=== PATIENT | female | born 1950 | race Caucasian/White ===

== ENCOUNTER 2018-07-25 15:55 | Inpatient (IN) | payer MEDICARE, MEDICAID ==
[~2018-07-25] VITALS: Ht 165.1 cm; Wt 62.7 kg
--- NOTE | ~2018-07-25 | PN ---
PATIENT:DEREK MALDONADO MEDICAL RECORD: [id number] LOCATION:S[facility] LopezJimmy112 ADMISSION DATE: 07/25/18 PROGRESS NOTE DATE OF SERVICE: 08/01/2018 SUBJECTIVE: The patient's case was discussed with staff. She has no new complaint. OBJECTIVE: The patient denies intent to harm herself or others. She generally tolerates her medicines well. Eye contact is good. ASSESSMENT: No change in diagnoses. PLAN: The patient will be transitioned out of the hospital today. She is tolerating her medications well and has a therapeutic Depakote level. She should have another Depakote level done in 2 weeks and followup is going to be with her primary care physician and the psychiatrist at the [facility]. TRANSINT:[id number] Voice Confirmation ID: [id number] DOCUMENT ID: [id number] MARK ANDRADE MD at 1440 CC: [id number] DICTATION DATE: 08/01/18 1331 CHOCOLATE FINISHER OPERATOR: 08/01/18 1338 DIS IN 08/01/18 [place] [id number] [place] [address]
--- NOTE | ~2018-07-25 | PN ---
PATIENT:DEREK MALDONADO MEDICAL RECORD: [id number] LOCATION:[facility] ADMISSION DATE: 07/25/18 PROGRESS NOTE DATE OF SERVICE: 07/29/2018 SUBJECTIVE: The patient's case was discussed with staff. She has no new complaint. OBJECTIVE: The patient is in good behavioral control. She is much more cooperative and her mood lability has dramatically improved since she was started on Depakote. She insists she is not bipolar, but states that she will take the medications because she thinks correctly that it will help her make better decisions and be less impulsive. ASSESSMENT: No change in diagnoses. PLAN: Current medicines and therapies have been reviewed and will be maintained. Long-term prognosis is guarded. TRANSINT:[id number] Voice Confirmation ID: [id number] DOCUMENT ID: [id number] MARK ANDRADE MD at 1053 CC: [id number] DICTATION DATE: 07/29/18 1334 DEVELOPMENT ANALYST: 07/29/18 1340 ADM IN [place] [id number] [place] [id number]
--- NOTE | ~2018-07-25 | PN ---
PATIENT:DEREK MALDONADO MEDICAL RECORD: [id number] LOCATION:S[facility] BeebeJennifer ADMISSION DATE: 07/25/18 PROGRESS NOTE DATE OF SERVICE: 07/28/2018 SUBJECTIVE: The patient's case was discussed with staff. She has no new complaint. OBJECTIVE: The patient is in good behavioral control with limited insight about her condition. She tolerates her medicines well. Eye contact is poor. ASSESSMENT: No change in diagnoses. PLAN: Current medicines and therapies have been reviewed, both will be maintained. She is showing significant improvement. TRANSINT:[id number] Voice Confirmation ID: [id number] DOCUMENT ID: [id number] MARK ANDRADE MD at 1324 CC: [id number] DICTATION DATE: 07/28/18 140 INNER TUBE INSERTER: 07/28/18 1407 ADM IN [address] [address]
--- NOTE | ~2018-07-25 | PSY ---
PATIENT NAME:DEREK MALDONADO MEDICAL RECORD: [id number] : 52 LOCATION:[facility]ica[facility] ADMISSION DATE: 07/25/18 ACCOUNT: [id number] PSYCHIATRIC EVALUATION DATE OF EVALUATION: 07/26/18 PSYCHIATRIC EVALUATION IDENTIFYING DATA: The patient is 68 years old and she was admitted to the hospital on a voluntary basis. CHIEF COMPLAINT: Confusion. HISTORY OF PRESENT ILLNESS: The patient was taken to the [facility] by ambulance after the [place] called them. Apparently, the patient had been driving around [facility] for hours and was lost. She was quite confused. She apparently had driven to [place] and then back to [place] and was exhibiting a high degree of agitation and distress with a low degree of specificity about what was bothering her. She is making a number of very bizarre and delusional statements such as telling myself and the nurse that she is psychic and that she knows what we are thinking. She is hearing and responding to a voice that is outside of the window and it is saying to her that he is going to shoot her in the head. Another voice is telling her that he is going to cut her head off and cut her into little pieces. She says very grandiose and bizarre things about her abilities and intelligence, and is clearly displaying manic behavior. She did have medical and neurologic evaluation in the [facility] with no acute findings. PAST MEDICAL HISTORY: Negative for any significant or chronic medical problems. PAST PSYCHIATRIC HISTORY: Significant for previous inpatient and outpatient treatment, but the patient is unable to give me details about this without rambling and becoming grossly disorganized and loose in her associations. FAMILY HISTORY: Unknown. ALLERGIES: TYLENOL. CURRENT MEDICATIONS: Include Bentyl, Fosamax, Wellbutrin, and Ambien. SOCIAL HISTORY: The patient is . 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 She denies a history of drug or alcohol abuse as well as legal entanglements. MENTAL STATUS EXAMINATION: The patient is awake, alert, and oriented to person only. She is rambling and incoherent about the place, time, and situation. Her mood is flat. Her affect is constricted. Thought processes are disorganized. Memory, concentration, and abstraction abilities are moderately impaired. She denies any active intent to harm herself or others as well as overt psychotic symptoms. ASSETS: Supportive family members. LIABILITIES: Limited insight. DIAGNOSTIC IMPRESSION: AXIS I: Bipolar disorder, manic. AXIS II: Deferred. AXIS III: None. AXIS IV: Moderate. AXIS V: Global assessment of functioning 40. PLAN: At this time, the patient is admitted to the hospital for a comprehensive medical, psychological, and social evaluation. I am going to start her on an antipsychotic and mood stabilizer. I am going to discontinue her Wellbutrin and Ambien. TRANSINT:[id number] Voice Confirmation ID: [id number] DOCUMENT ID: [id number] MARK ANDRADE MD at 1628 CC: [id number] DICTATION DATE: 07/26/18 1518 ALUMINUM SHEET CUTTER: 07/26/18 1530 ADM IN [place] [address] [place] [address]
--- NOTE | ~2018-07-25 | PN ---
PATIENT:DEREK MALDONADO MEDICAL RECORD: [id number] LOCATION:SIN[facility] Beebe112 ADMISSION DATE: 07/25/18 PROGRESS NOTE DATE OF SERVICE: 07/27/2018 SUBJECTIVE: The patient's case was discussed with staff. She has no new complaint. OBJECTIVE: The patient is very irritable. When asked even very simple and nonthreatening questions, she becomes angry. She is giving me a little bit more history, but is not very helpful. She tells me that she is followed by the [facility] in [place]. She does not know the name of her doctor and she does not know why she goes there. She says they have given her some BuSpar, but it really does not help. She says no one has ever talked to her about the diagnosis of bipolar disorder and she does not think she has the condition. She goes on to describe what sounds like hypomanic symptoms that she primarily is calling insomnia and complaining about insomnia, but along with the insomnia, the impulsivity, the mood lability, the poor judgment and even some of the delusional symptoms that have been reported, is my opinion that diagnosed or not she has a longstanding problem with manic depression or bipolar disorder. ASSESSMENT: No change in diagnoses. PLAN: The patient is going to be prescribed Depakote for mood stabilizing purposes. I am not sure if she is going to take it, but I think it is in her best interest and have discussed it with her. I am not sure if she agreed since she got up and seemed to be agreeing, but then she was mumbling something angrily as she walked away. TRANSINT:[id number] Voice Confirmation ID: [id number] DOCUMENT ID: [id number] MARK ANDRADE MD at 1305 CC: [id number] DICTATION DATE: 07/27/18 172 WINDSHIELD TECHNICIAN: 07/27/18 1739 ADM IN [place] [address] [place] [address]
--- NOTE | ~2018-07-25 | DS ---
PATIENT:DEREK MALDONADO :52 MEDICAL RECORD: [id number] DISCHARGE SUMMARY ADMISSION DATE: 07/25/18 DISCHARGE DATE: 08/01/18 PSYCHIATRIC DISCHARGE SUMMARY IDENTIFYING DATA: The patient is 68 years old and she was admitted to the hospital on a voluntary basis because of confusion. The patient was recently taken to the [facility] by ambulance. The [place] [employer] had been called because she was driving around town confused and lost. She had apparently just returned from [place] and had been exhibiting a high degree of agitation and distress with a low degree of specificity about what was distressing her. She was making a number of very bizarre delusional statements such as telling the nurse and others that she was psychic and that she knew what we were thinking. She was clearly hearing and responding to external stimuli and was talking to someone outside the window. She was hearing a voice telling her that she was going to have her head cut off and that she was going to be cut up into little pieces and she was obviously very distressed about this. She was exhibiting grandiose bizarre behaviors and was clearly manic in a classical sense. HOSPITAL COURSE: The patient was admitted to the hospital and evaluated from both medical, psychological, and social standpoint. She was treated with both mood stabilizing and antipsychotic medications and showed a dramatic improvement. She organized, was not psychotic, actually had a euthymic mood, and was able to track and focus her attention. She stated that she felt better than she had ever felt and felt that, for the first time, her psychiatric symptoms were under control. It is unclear to me why she had never been placed on Depakote or lithium, but this is the history that she presented. DISCHARGE DIAGNOSES: AXIS I: Bipolar disorder, manic. AXIS II: Deferred. AXIS III: None. AXIS IV: Moderate. AXIS V: Global assessment of functioning 60. PLAN: At the time of discharge, the patient had dramatically improved and was not showing any evidence of kelly or psychiatric disease. She was tolerating her medications well. Her long-term prognosis is guarded. Brief supportive and educational interventions were made and followup was arranged with local mental health center. Assuming she follows up with these appointments and takes her medicines as prescribed, I think she has a good prognosis. TRANSINT:[id number] Voice Confirmation ID: [id number] DOCUMENT ID: [id number] MARK ANDRADE MD at 1407 CC: [id number] DICTATION DATE: 08/03/18 1454 CANDY MAKER HELPER: 08/03/18 1517 DIS IN 08/01/18 [place] [id number] [place] [id number]
--- NOTE | ~2018-07-25 | PN ---
PATIENT:DEREK MALDONADO MEDICAL RECORD: [id number] LOCATION:S[facility] Howard ADMISSION DATE: 07/25/18 PROGRESS NOTE DATE OF SERVICE: 07/31/2018 SUBJECTIVE: The patient's case was discussed with staff. She has no new complaint. OBJECTIVE: The patient has dramatically improved with her thought processes no longer being disorganized and no psychotic symptoms are present. Her mood lability is also dramatically improved. ASSESSMENT: No change in diagnoses. PLAN: The patient has a therapeutic Depakote level of 92. I plan on her being discharged tomorrow if this level of improvement is maintained. TRANSINT:[id number] Voice Confirmation ID: [id number] DOCUMENT ID: [id number] MARK ANDRADE MD at 1319 CC: [id number] DICTATION DATE: 07/31/18 1015 TABLE GAMES SUPERVISOR: 07/31/18 1144 ADM IN [place] [id number] [place] [address]
--- NOTE | ~2018-07-25 | PN ---
PATIENT:DEREK MALDONADO MEDICAL RECORD: [id number] LOCATION:SINAN Bebee112 ADMISSION DATE: 07/25/18 PROGRESS NOTE DATE OF SERVICE: 07/30/2018 SUBJECTIVE: The patient's case was discussed with staff. She has no new complaint. OBJECTIVE: The patient denies intent to harm herself or others. She does tolerate her medicines well. ASSESSMENT: No change in diagnoses. PLAN: The patient has shown dramatic improvement in her thought processes and mood lability. I am going to check a Depakote level tomorrow and will transition her out of the hospital Wednesday if this level of improvement continues. TRANSINT:[id number] Voice Confirmation ID: [id number] DOCUMENT ID: [id number] MARK ANDRADE MD at 1002 CC: [id number] DICTATION DATE: 07/30/18 1115 GRAIN ELEVATOR MAN: 07/30/18 1352 ADM IN [facility] [address] [place] [address]
[2018-07-25] MEDS ORDERED: BENTYL10 MG PO (16:17)
[2018-07-25] MEDS ORDERED: ALENDRONATE SOD70 MG PO (16:18)
[2018-07-25] MEDS ORDERED: BUPROPION HCL100 MG (16:19)
[2018-07-25] MEDS ORDERED: AMBIEN10 MG PO (16:21)
[2018-07-25 16:27] VITALS: BP 150/85; BMI 23.0
[2018-07-25 19:47] VITALS: BP 150/85
[2018-07-25 20:29] LABS: APPEARANCE CLEAR (CLEAR); BILIRUBIN NEGATIVE (NEGATIVE); COLOR YELLOW (YELLOW); GLUCOSE NEGATIVE (NEGATIVE); KETONE NEGATIVE (NEGATIVE); NITRITE NEGATIVE (NEGATIVE); PROTEIN NEGATIVE (NEGATIVE); UROBILINOGEN NORMAL (NORMAL)
[2018-07-25 20:30] LABS: RED CELLS - URINE OCC /hpf (0-5); WHITE CELLS - URINE 0-5 /hpf (0-5)
[2018-07-25 20:31] LABS: BACTERIA FEW /hpf (NONE SEEN)
[2018-07-26 08:00] VITALS: BP 136/70
[2018-07-26 10:23] VITALS: BMI 22.9
[2018-07-26 10:47] VITALS: Ht 165.1 cm; Wt 62.7 kg
[2018-07-26 10:54] LABS: BASOPHILS 0.3 % (0-2); EOSINOPHILS 1.3 % (0-7); HEMATOCRIT 41.6 % (36.0-48.0); IMMATURE GRANULOCYTES 0.2 % (0-5); LYMPHOCYTES 18.1 % (15-50); MCHC 33.7 g/dL (31.0-37.0); MEAN PLATELET VOLUME 9.7 fL (7.4-10.4); MONOCYTES 6.1 % (2-11); PLATELET COUNT 201 10x3/uL (130-400); RBC 4.52 10x6/uL (4.00-5.40); WBC 6.2 10x3/uL (4.8-10.8)
[2018-07-26 11:25] LABS: ALBUMIN 3.4 g/dL (3.4-5.0); ANION GAP 11.1 mmol/L (8-16); BILIRUBIN - TOTAL 0.77 mg/dL (0.2-1.3); CALCIUM 8.9 mg/dL (8.5-10.1); CARBON DIOXIDE 31.5 mmol/L (21.0-32.0); CHOL - HDL RATIO 2.9 ratio (2.3-4.1); CREATININE - SERUM 1.1 mg/dL (0.6-1.3); LDL-HDL RATIO 1.5 ratio (1.5-3.5); POTASSIUM - SERUM 3.6 mmol/L (3.5-5.1); PROTEIN - SERUM 6.5 g/dL (6.4-8.2); THYROID STIMULATING HORMONE 0.61 uIU/mL (0.36-3.74)
[2018-07-26 19:37] VITALS: BP 109/62
[2018-07-27 06:15] LABS: VITAMIN D 25 HYDROXY 26.5 ng/mL (30.0-100.0)
[2018-07-27 07:37] VITALS: BP 114/60
[2018-07-27 08:23] LABS: RAPID PLASMA REAGIN Non Reactive (Non Reactive)
[2018-07-27 09:19] LABS: FOLATE (FOLIC ACID) - SERUM 13.4 ng/mL (>3.0)
[2018-07-27 20:25] VITALS: BP 108/62
[2018-07-28 09:14] VITALS: BP 120/67
[2018-07-28 19:41] VITALS: BP 96/45
[2018-07-29 08:58] VITALS: BP 111/66
[2018-07-29 20:00] VITALS: BP 100/56
[2018-07-30 08:00] VITALS: BP 109/76
[2018-07-30 19:22] VITALS: BP 100/50
[2018-07-31 08:00] VITALS: BP 118/50
[2018-07-31] MEDS ORDERED: VITAMIN D5000 UNIT PO (10:16)
[2018-07-31] MEDS ORDERED: DEPAKOTE500 MG PO (10:16)
[2018-07-31] MEDS ORDERED: ZYPREXA2.5 MG PO (10:16)
[2018-07-31 19:25] VITALS: BP 112/54
[2018-08-01 12:11] VITALS: BP 109/60
== END 2018-08-01 13:30 | disposition home or self-care (01) | DRG 885 ==
LOC: D.PSYCH 15:55
PROVIDERS: Psychiatry & Neurology Psychiatry
DX: F31.2 Bipolar disorder, current episode manic severe with psychotic features (principal); G47.00 Insomnia, unspecified; F41.9 Anxiety disorder, unspecified; E55.9 Vitamin D deficiency, unspecified